=== PATIENT | female | born 1975 | race Two or more races ===

== ENCOUNTER 2025-04-06 09:11 | Outpatient (CLI) | payer BC ==
[2025-04-06 09:58] LABS: Nucleated Red Blood Cells % 0.3 %
[2025-04-06 10:00] LABS: Hematocrit 51.9 % (36.0-46.0); Hemoglobin 17.8 g/dL (12.2-16.2); Mean Corpuscular Hemoglobin 30.9 pg (28.0-32.0); Mean Corpuscular Volume 90.2 fL (80.0-100.0)
[2025-04-06 10:32] LABS: Alanine Aminotransferase 21 U/L (7-40); Albumin 4.5 g/dL (3.2-4.8); Alkaline Phosphatase 48 U/L (46-116); Anion Gap 8 (5-15); BUN/Creatinine Ratio 9.4 (10.0-20.0); Bilirubin, Total 0.5 mg/dL (0.2-1.0); Calcium 9.6 mg/dL (8.7-10.4); Carbon Dioxide 26 mmol/L (20-31); Chloride 106 mmol/L (98-107); Glucose 90 mg/dL (74-106); Potassium 4.1 mmol/L (3.5-5.1); Sodium 140 mmol/L (136-145); Total Protein 8.2 g/dL (5.7-8.2)
[2025-04-06 10:35] LABS: Follicle Stimulating Hormone 41.86 IU/L (SEE BELOW)
[2025-04-06 10:40] LABS: Blood Urea Nitrogen 8 mg/dL (9-23)
== END 2025-04-06 17:00 | disposition home or self-care (01) ==
LOC: LAB 09:11
PROVIDERS: ATTEND Obstetrics & Gynecology
DX: D25.0 Submucous leiomyoma of uterus (principal); N39.3 Stress incontinence (female) (male)
CPT/HCPCS: 36415; 80053; 82670; 83001; 83002; 84403; 84443; 85025